=== PATIENT | male | born 1935 | race Caucasian/White ===

== ENCOUNTER 2022-07-14 18:35 | Inpatient (IN) ==
[2022-07-14 19:04] LABS: Basophils % 0.3 % (0.0-0.8); Eosinophils # 0.2 10*3/uL (0.0-0.87); Eosinophils % 1.5 % (0.00-10.9); Hematocrit 36.2 VOL% (42.0-52.0); Hemoglobin 12.3 GM/DL (14.0-18.0); Immature Granulocytes % 0.9 %; Immature Granulocytes Absolute 0.09 #; Lymphocytes # 0.6 10*3/uL (1.4-4.0); Lymphocytes % 5.6 % (21.2-54.2); Mean Corpuscular Volume 97.8 FL (87-102); Monocytes # 1.2 10*3/uL (0.11-0.8); Monocytes % 11.7 % (1.7-12.7); Platelet Count 203 T/CUMM (130-400); Red Cell Distribution Width 12.9 % (9.3-17.3); White Blood Count 10.3 T/CUMM (4-12)
[2022-07-14 19:22] LABS: Albumin 3.2 G/DL (3.4-5.0); Bilirubin,Total 0.5 MG/DL (0.20-1.00); Calcium 8.7 MG/DL (8.5-10.1); Osmolality,Calculated 262.7 MOS/KG (273-304); Potassium 3.9 MMOL/L (3.5-5.1)
[2022-07-14 20:06] LABS: Bacteria,Urine Occasional /HPF (Few); Mucus,Urine Occasional /LPF (Occasional); RBC,Urine 4 /HPF (0-4)
[2022-07-14 20:07] LABS: Urine Color Yellow (Yellow)
[2022-07-14 20:08] LABS: Bilirubin,Urine Negative (Negative); Blood, Urine Negative (Negative); Glucose,Urine (UA) Negative (Negative); Ketones,Urine Negative (Negative); Nitrite,Urine Negative (Negative); Protein,Urine 30 mg/dL (Negative); Urine Appearance Clear (Clear); Urine Specific Gravity 1.025 (1.001-1.035); Urine Urobilinogen 0.2 eU/dL (<2.0)
[2022-07-14] MEDS ORDERED: MAGNESIUM SULF RIDER 2 GM/50 ML PREMIX IV STA (20:15)
[2022-07-14] MEDS ORDERED: DEXTROSE 50% 25 GM/50 ML SYRINGE IV ONE (20:15)
[2022-07-14] MEDS ORDERED: DEXTROSE 10% 250 ML IV ONE (20:15)
[2022-07-14 20:24] LABS: Barbiturates Screen,Urine Negative (Negative); Benzodiazepines Screen,Urine Negative (Negative); Cannabinoid Screen,Urine Negative (Negative); Opiate Screen,Urine Negative (Negative); Phencyclidine Screen,Urine Negative (Negative)
[2022-07-14] MEDS ORDERED: DEXTROSE 50% 25 GM/50 ML VIAL IV STA (20:32)
[2022-07-14] MEDS ORDERED: DEXTROSE 50% 25 GM/50 ML SYRINGE IV STA (20:37)
[2022-07-14 20:59] LABS: ABG Base Excess 1.7 MMOL/L (-2.5-2.5); ABG HCO3 25.9 MMOL/L (20-26); ABG Oxygen Saturation 98.1 % (95-100); ABG PCO2 66.3 MM HG (35-48); ABG PH 7.272 (7.35-7.45); ABG TCO2 27.5 MMOL/L (23-27)
[2022-07-14] MEDS ORDERED: DEXTROSE 10% 1,000 ML IV SCH (21:00)
[2022-07-14] MEDS ORDERED: DEXTROSE 50% 25 GM/50 ML VIAL IV PRN (21:49)
[2022-07-14] MEDS ORDERED: MAGNESIUM SULF RIDER 4 GM/100 ML PREMIX IV PRN (21:49)
[2022-07-14] MEDS ORDERED: GLUCAGON 1 MG VIAL IM PRN ×2 (21:49)
[2022-07-14] MEDS ORDERED: MAGNESIUM SULF RIDER 2 GM/50 ML PREMIX IV PRN (21:49)
[2022-07-14] MEDS: ENOXAPARIN 40 MG/0.4 ML SYRINGE SUBCUT SCH (22:35)
[2022-07-14] MEDS: DEXTROSE 5% NACL 0.9% 1,000 ML IV SCH (23:00)
[2022-07-15] MEDS: DEXTROSE 10% 250 ML BAG IV PRN ×2 (00:16→04:02)
[2022-07-15 05:03] LABS: Arterial Base Excess iSTAT 1 MMOL/L (-2.5-2.5); Arterial Bicarbonate iSTAT 30.4 MMOL/L (20-26); Arterial O2 Saturation iSTAT 98 % (95-100); Arterial PCO2 iSTAT 71 MM HG (35-48); Arterial PO2 iSTAT 134 MM HG (80-95); Arterial Total CO2 iSTAT 33 MMO/L (23-27); Arterial pH iSTAT 7.242 (7.35-7.45)
[2022-07-15 06:26] LABS: Basophils % 0.3 % (0.0-0.8); Eosinophils # 0.3 10*3/uL (0.0-0.87); Eosinophils % 2.4 % (0.00-10.9); Hematocrit 36.1 VOL% (42.0-52.0); Immature Granulocytes % 0.6 %; Immature Granulocytes Absolute 0.06 #; Lymphocytes % 9.4 % (21.2-54.2); Mean Corpuscular HGB Conc 33.2 GM/DL (32-36); Mean Corpuscular Volume 100.3 FL (87-102); Mean Platelet Volume 9.8 FL (9.6-12.0); Monocytes # 1.5 10*3/uL (0.11-0.8); Monocytes % 14.1 % (1.7-12.7); Neutrophils % 73.2 % (38.7-73.9); Platelet Count 195 T/CUMM (130-400); Red Cell Distribution Width 12.7 % (9.3-17.3); White Blood Count 10.3 T/CUMM (4-12)
[2022-07-15 06:33] LABS: Mucus,Urine Many /LPF (Occasional); RBC,Urine 7 /HPF (0-4)
[2022-07-15 06:34] LABS: Bilirubin,Urine Negative (Negative); Blood, Urine Negative (Negative); Glucose,Urine (UA) Negative (Negative); Ketones,Urine Negative (Negative); Nitrite,Urine Negative (Negative); Protein,Urine Negative (Negative); Urine Appearance Clear (Clear); Urine Color Yellow (Yellow); Urine Specific Gravity 1.015 (1.001-1.035); Urine Urobilinogen 0.2 eU/dL (<2.0); Urine pH 5.5 (4.5-8.0)
[2022-07-15] MEDS: DEXTROSE 5% NACL 0.9% 1,000 ML IV SCH ×2 (06:36→14:26)
[2022-07-15 06:55] LABS: Calcium 8.2 MG/DL (8.5-10.1); Osmolality,Calculated 256.9 MOS/KG (273-304); Potassium 4.4 MMOL/L (3.5-5.1); Risk Ratio 1.44; Thyroid Stimulating Hormone 1.37 uIU/ml (0.358-3.74); VLDL Cholesterol 9.8 MG/DL
[2022-07-15] MEDS: HYDROCORTISONE 100 MG VIAL IV SCH ×3 (08:17→23:05)
[2022-07-15] MEDS: BUDESONIDE/FORMOTEROL 160-4.5 INHALER 6 GM INH SCH ×3 (08:18→20:25)
[2022-07-15] MEDS ORDERED: lisinopriL 10 MG TABLET PO SCH (09:00)
[2022-07-15] MEDS: MULTIVITAMIN (CENTRUM) TABLET PO SCH (09:50)
[2022-07-15] MEDS: AMOXICILLIN/CLAV 500 MG TABLET PO SCH ×2 (09:50→20:07)
[2022-07-15] MEDS: TAMSULOSIN 0.4 MG CAPSULE PO SCH (09:50)
[2022-07-15] MEDS: FOLIC ACID 1 MG TABLET PO SCH (09:50)
[2022-07-15] MEDS: ATORVASTATIN 20 MG TABLET PO SCH (09:50)
[2022-07-15] MEDS: PYRIDOSTIGMINE 60 MG TABLET PO SCH ×3 (09:50→20:07)
[2022-07-15] MEDS: CLOPIDOGREL 75 MG TABLET PO SCH (09:50)
[2022-07-15] MEDS: MYCOPHENOLATE MOFETIL 250 MG CAPSULE PO SCH ×2 (09:50→20:07)
[2022-07-15] MEDS: PANTOPRAZOLE 40 MG TABLET PO SCH (09:50)
[2022-07-15] MEDS: FEXOFENADINE 180 MG TABLET PO SCH (09:50)
[2022-07-15] MEDS: ALBUTEROL/IPRATROPIUM 3 ML NEB RESP TX SCH ×2 (12:00→19:01)
[2022-07-15 13:41] LABS: Arterial Base Excess iSTAT 0 MMOL/L (-2.5-2.5); Arterial Bicarbonate iSTAT 27.2 MMOL/L (20-26); Arterial O2 Saturation iSTAT 93 % (95-100); Arterial PCO2 iSTAT 53 MM HG (35-48); Arterial PO2 iSTAT 73 MM HG (80-95); Arterial Total CO2 iSTAT 29 MMO/L (23-27); Arterial pH iSTAT 7.317 (7.35-7.45)
[2022-07-15] MEDS: SODIUM CHLORIDE 0.9% 1,000 ML IV SCH ×2 (15:53→23:05)
[2022-07-15] MEDS: ENOXAPARIN 40 MG/0.4 ML SYRINGE SUBCUT SCH (20:06)
[2022-07-15] MEDS: MONTELUKAST 10 MG TABLET PO SCH (20:07)
[2022-07-16] MEDS: ALBUTEROL/IPRATROPIUM 3 ML NEB RESP TX SCH ×4 (00:04→19:32)
[2022-07-16 04:07] LABS: Arterial Base Excess iSTAT 2 MMOL/L (-2.5-2.5); Arterial Bicarbonate iSTAT 27.8 MMOL/L (20-26); Arterial O2 Saturation iSTAT 95 % (95-100); Arterial PCO2 iSTAT 47 MM HG (35-48); Arterial PO2 iSTAT 78 MM HG (80-95); Arterial Total CO2 iSTAT 29 MMO/L (23-27); Arterial pH iSTAT 7.384 (7.35-7.45)
[2022-07-16 05:36] LABS: Basophils % 0.1 % (0.0-0.8); Hematocrit 36.6 VOL% (42.0-52.0); Immature Granulocytes % 0.7 %; Lymphocytes # 0.5 10*3/uL (1.4-4.0); Lymphocytes % 3.5 % (21.2-54.2); Mean Corpuscular HGB Conc 32.8 GM/DL (32-36); Mean Corpuscular Volume 100.5 FL (87-102); Monocytes # 1.6 10*3/uL (0.11-0.8); Monocytes % 11.8 % (1.7-12.7); Neutrophils % 83.9 % (38.7-73.9); Platelet Count 193 T/CUMM (130-400); Red Blood Count 3.64 MC/CUMM (3.8-5.5); Red Cell Distribution Width 12.7 % (9.3-17.3); White Blood Count 13.5 T/CUMM (4-12)
[2022-07-16 06:00] LABS: Band Neutrophils 1 % (0-10); Lymphocytes 6 % (20-55); Platelet Estimate Adequate; Total Cells Counted 100
[2022-07-16 06:01] LABS: Calcium 8.5 MG/DL (8.5-10.1); Osmolality,Calculated 274.2 MOS/KG (273-304); Potassium 4.6 MMOL/L (3.5-5.1)
[2022-07-16] MEDS: SODIUM CHLORIDE 0.9% 1,000 ML IV SCH ×3 (06:26→22:43)
[2022-07-16] MEDS: HYDROCORTISONE 100 MG VIAL IV SCH (08:48)
[2022-07-16] MEDS: MULTIVITAMIN (CENTRUM) TABLET PO SCH (08:56)
[2022-07-16] MEDS: ATORVASTATIN 20 MG TABLET PO SCH (08:56)
[2022-07-16] MEDS: CLOPIDOGREL 75 MG TABLET PO SCH (08:56)
[2022-07-16] MEDS: PANTOPRAZOLE 40 MG TABLET PO SCH (08:56)
[2022-07-16] MEDS: MYCOPHENOLATE MOFETIL 250 MG CAPSULE PO SCH ×2 (08:56→20:22)
[2022-07-16] MEDS: AMOXICILLIN/CLAV 500 MG TABLET PO SCH ×2 (08:56→20:22)
[2022-07-16] MEDS: FOLIC ACID 1 MG TABLET PO SCH (08:56)
[2022-07-16] MEDS: FEXOFENADINE 180 MG TABLET PO SCH (08:56)
[2022-07-16] MEDS: TAMSULOSIN 0.4 MG CAPSULE PO SCH (08:56)
[2022-07-16] MEDS: lisinopriL 10 MG TABLET PO SCH (08:57)
[2022-07-16] MEDS: PYRIDOSTIGMINE 60 MG TABLET PO SCH ×3 (08:57→20:22)
[2022-07-16] MEDS: BUDESONIDE/FORMOTEROL 160-4.5 INHALER 6 GM INH SCH ×2 (09:01→20:23)
[2022-07-16] MEDS: MONTELUKAST 10 MG TABLET PO SCH (20:22)
[2022-07-16] MEDS: ENOXAPARIN 40 MG/0.4 ML SYRINGE SUBCUT SCH (20:22)
[2022-07-17] MEDS: ALBUTEROL/IPRATROPIUM 3 ML NEB RESP TX SCH ×4 (00:09→18:54)
[2022-07-17 06:25] LABS: Basophils % 0.2 % (0.0-0.8); Eosinophils % 0.1 % (0.00-10.9); Hematocrit 33.1 VOL% (42.0-52.0); Hemoglobin 10.9 GM/DL (14.0-18.0); Immature Granulocytes % 0.6 %; Lymphocytes # 0.5 10*3/uL (1.4-4.0); Lymphocytes % 2.9 % (21.2-54.2); Mean Corpuscular HGB Conc 32.9 GM/DL (32-36); Mean Corpuscular Volume 100.9 FL (87-102); Monocytes # 1.7 10*3/uL (0.11-0.8); Monocytes % 11.3 % (1.7-12.7); Neutrophils % 84.9 % (38.7-73.9); Platelet Count 174 T/CUMM (130-400); Red Blood Count 3.28 MC/CUMM (3.8-5.5); Red Cell Distribution Width 12.8 % (9.3-17.3); White Blood Count 15.4 T/CUMM (4-12)
[2022-07-17 06:42] LABS: Calcium 8.7 MG/DL (8.5-10.1); Osmolality,Calculated 278.7 MOS/KG (273-304); Potassium 4.3 MMOL/L (3.5-5.1)
[2022-07-17 06:50] LABS: Hypochromia Slight; Lymphocytes 3 % (20-55); Platelet Estimate Adequate; Total Cells Counted 100
[2022-07-17] MEDS: lisinopriL 10 MG TABLET PO SCH (08:17)
[2022-07-17] MEDS: PYRIDOSTIGMINE 60 MG TABLET PO SCH ×3 (08:17→20:22)
[2022-07-17] MEDS: MYCOPHENOLATE MOFETIL 250 MG CAPSULE PO SCH ×2 (08:17→20:22)
[2022-07-17] MEDS: PANTOPRAZOLE 40 MG TABLET PO SCH (08:17)
[2022-07-17] MEDS: MULTIVITAMIN (CENTRUM) TABLET PO SCH (08:17)
[2022-07-17] MEDS: FEXOFENADINE 180 MG TABLET PO SCH (08:18)
[2022-07-17] MEDS: TAMSULOSIN 0.4 MG CAPSULE PO SCH (08:18)
[2022-07-17] MEDS: FOLIC ACID 1 MG TABLET PO SCH (08:18)
[2022-07-17] MEDS: AMOXICILLIN/CLAV 500 MG TABLET PO SCH ×2 (08:18→20:22)
[2022-07-17] MEDS: ATORVASTATIN 20 MG TABLET PO SCH (08:18)
[2022-07-17] MEDS: CLOPIDOGREL 75 MG TABLET PO SCH (08:18)
[2022-07-17] MEDS: BUDESONIDE/FORMOTEROL 160-4.5 INHALER 6 GM INH SCH ×2 (08:57→20:22)
[2022-07-17] MEDS ORDERED: METOPROLOL TARTRATE 5 MG/5 ML VIAL IV ONE ×2 (18:39)
[2022-07-17 18:58] LABS: Arterial Base Excess iSTAT 3 MMOL/L (-2.5-2.5); Arterial Bicarbonate iSTAT 28.7 MMOL/L (20-26); Arterial O2 Saturation iSTAT 86 % (95-100); Arterial PCO2 iSTAT 49 MM HG (35-48); Arterial PO2 iSTAT 54 MM HG (80-95); Arterial Total CO2 iSTAT 30 MMO/L (23-27); Arterial pH iSTAT 7.373 (7.35-7.45)
[2022-07-17] MEDS: MONTELUKAST 10 MG TABLET PO SCH (20:22)
[2022-07-17] MEDS: ENOXAPARIN 40 MG/0.4 ML SYRINGE SUBCUT SCH (20:22)
[2022-07-17] MEDS: SODIUM CHLORIDE 0.9% 1,000 ML IV SCH ×2 (22:47→23:59)
[2022-07-17] MEDS: INSULIN LISPRO 100 UNIT/ML SUBCUT SCH (23:38)
[2022-07-18] MEDS: ALBUTEROL/IPRATROPIUM 3 ML NEB RESP TX SCH ×4 (00:04→19:19)
[2022-07-18] MEDS: INSULIN LISPRO 100 UNIT/ML SUBCUT SCH ×4 (05:42→20:51)
[2022-07-18 05:51] LABS: Basophils % 0.2 % (0.0-0.8); Eosinophils % 0.1 % (0.00-10.9); Hematocrit 33.2 VOL% (42.0-52.0); Hemoglobin 10.9 GM/DL (14.0-18.0); Immature Granulocytes Absolute 0.18 #; Lymphocytes # 0.6 10*3/uL (1.4-4.0); Lymphocytes % 3.3 % (21.2-54.2); Mean Corpuscular HGB Conc 32.8 GM/DL (32-36); Mean Corpuscular Volume 100.6 FL (87-102); Mean Platelet Volume 10.1 FL (9.6-12.0); Neutrophils % 84.4 % (38.7-73.9); Platelet Count 176 T/CUMM (130-400); Red Cell Distribution Width 12.8 % (9.3-17.3); White Blood Count 18.2 T/CUMM (4-12)
[2022-07-18 06:19] LABS: Calcium 8.5 MG/DL (8.5-10.1); Osmolality,Calculated 277.5 MOS/KG (273-304); Potassium 4.1 MMOL/L (3.5-5.1)
[2022-07-18 06:29] LABS: Lymphocytes 1 % (20-55); Platelet Estimate Adequate; Total Cells Counted 100
[2022-07-18] MEDS: SODIUM CHLORIDE 0.9% 1,000 ML IV SCH ×2 (06:36→16:58)
[2022-07-18 08:11] LABS: Arterial Base Excess iSTAT 2 MMOL/L (-2.5-2.5); Arterial O2 Saturation iSTAT 94 % (95-100); Arterial PCO2 iSTAT 49 MM HG (35-48); Arterial PO2 iSTAT 73 MM HG (80-95); Arterial Total CO2 iSTAT 29 MMO/L (23-27); Arterial pH iSTAT 7.369 (7.35-7.45)
[2022-07-18] MEDS: MYCOPHENOLATE MOFETIL 250 MG CAPSULE PO SCH ×2 (09:37→20:51)
[2022-07-18] MEDS: ATORVASTATIN 20 MG TABLET PO SCH ×2 (09:37→09:39)
[2022-07-18] MEDS: PYRIDOSTIGMINE 60 MG TABLET PO SCH ×3 (09:37→20:52)
[2022-07-18] MEDS: FEXOFENADINE 180 MG TABLET PO SCH (09:38)
[2022-07-18] MEDS: PANTOPRAZOLE 40 MG TABLET PO SCH (09:38)
[2022-07-18] MEDS: TAMSULOSIN 0.4 MG CAPSULE PO SCH (09:38)
[2022-07-18] MEDS: lisinopriL 10 MG TABLET PO SCH (09:38)
[2022-07-18] MEDS: FOLIC ACID 1 MG TABLET PO SCH (09:38)
[2022-07-18] MEDS: CLOPIDOGREL 75 MG TABLET PO SCH (09:38)
[2022-07-18] MEDS: MULTIVITAMIN (CENTRUM) TABLET PO SCH (09:38)
[2022-07-18] MEDS: predniSONE 20 MG TABLET PO SCH (09:38)
[2022-07-18] MEDS: BUDESONIDE/FORMOTEROL 160-4.5 INHALER 6 GM INH SCH ×2 (09:40→20:53)
[2022-07-18] MEDS: PIPERACILLIN/TAZOBACTAM 3,375 MG in SODIUM CHLORIDE 0.9% 100 ML IV SCH ×2 (09:41→15:58)
[2022-07-18] MEDS: MONTELUKAST 10 MG TABLET PO SCH (20:51)
[2022-07-18] MEDS: ENOXAPARIN 40 MG/0.4 ML SYRINGE SUBCUT SCH (20:51)
[2022-07-19] MEDS: ALBUTEROL/IPRATROPIUM 3 ML NEB RESP TX SCH ×4 (00:31→19:36)
[2022-07-19] MEDS: PIPERACILLIN/TAZOBACTAM 3,375 MG in SODIUM CHLORIDE 0.9% 100 ML IV SCH ×3 (02:20→17:00)
[2022-07-19 05:23] LABS: Basophils % 0.2 % (0.0-0.8); Eosinophils % 0.2 % (0.00-10.9); Hematocrit 30.7 VOL% (42.0-52.0); Immature Granulocytes % 0.9 %; Immature Granulocytes Absolute 0.11 #; Lymphocytes # 0.7 10*3/uL (1.4-4.0); Lymphocytes % 5.4 % (21.2-54.2); Mean Corpuscular HGB Conc 32.6 GM/DL (32-36); Mean Platelet Volume 10.2 FL (9.6-12.0); Monocytes # 1.2 10*3/uL (0.11-0.8); Neutrophils % 83.3 % (38.7-73.9); Platelet Count 174 T/CUMM (130-400); Red Blood Count 3.01 MC/CUMM (3.8-5.5); White Blood Count 12.2 T/CUMM (4-12)
[2022-07-19 05:52] LABS: Calcium 8.8 MG/DL (8.5-10.1); Osmolality,Calculated 287.1 MOS/KG (273-304)
[2022-07-19] MEDS: SODIUM CHLORIDE 0.9% 1,000 ML IV SCH ×2 (08:39→10:57)
[2022-07-19] MEDS: FEXOFENADINE 180 MG TABLET PO SCH (08:41)
[2022-07-19] MEDS: predniSONE 20 MG TABLET PO SCH (08:41)
[2022-07-19] MEDS: MULTIVITAMIN (CENTRUM) TABLET PO SCH (08:41)
[2022-07-19] MEDS: PANTOPRAZOLE 40 MG TABLET PO SCH (08:41)
[2022-07-19] MEDS: PYRIDOSTIGMINE 60 MG TABLET PO SCH ×3 (08:41→21:03)
[2022-07-19] MEDS: TAMSULOSIN 0.4 MG CAPSULE PO SCH (08:41)
[2022-07-19] MEDS: MYCOPHENOLATE MOFETIL 250 MG CAPSULE PO SCH ×2 (08:41→21:02)
[2022-07-19] MEDS: INSULIN LISPRO 100 UNIT/ML SUBCUT SCH ×4 (08:41→21:03)
[2022-07-19] MEDS: lisinopriL 10 MG TABLET PO SCH (08:41)
[2022-07-19] MEDS: CLOPIDOGREL 75 MG TABLET PO SCH (08:41)
[2022-07-19] MEDS: FOLIC ACID 1 MG TABLET PO SCH (08:41)
[2022-07-19] MEDS: ATORVASTATIN 20 MG TABLET PO SCH (08:41)
[2022-07-19] MEDS: BUDESONIDE/FORMOTEROL 160-4.5 INHALER 6 GM INH SCH ×2 (08:47→21:04)
[2022-07-19] MEDS: metFORMIN 500 MG TABLET PO SCH (16:29)
[2022-07-19] MEDS: ENOXAPARIN 40 MG/0.4 ML SYRINGE SUBCUT SCH (21:02)
[2022-07-19] MEDS: MONTELUKAST 10 MG TABLET PO SCH (21:03)
[2022-07-19] MEDS: ACETAMINOPHEN 325 MG TABLET PO PRN (21:03)
[2022-07-20] MEDS: ALBUTEROL/IPRATROPIUM 3 ML NEB RESP TX SCH ×4 (00:44→19:35)
[2022-07-20] MEDS: PIPERACILLIN/TAZOBACTAM 3,375 MG in SODIUM CHLORIDE 0.9% 100 ML IV SCH ×3 (02:14→17:01)
[2022-07-20] MEDS: INSULIN LISPRO 100 UNIT/ML SUBCUT SCH ×4 (09:31→21:55)
[2022-07-20] MEDS: PYRIDOSTIGMINE 60 MG TABLET PO SCH ×3 (09:32→21:53)
[2022-07-20] MEDS: FEXOFENADINE 180 MG TABLET PO SCH (09:32)
[2022-07-20] MEDS: CLOPIDOGREL 75 MG TABLET PO SCH (09:32)
[2022-07-20] MEDS: ATORVASTATIN 20 MG TABLET PO SCH (09:32)
[2022-07-20] MEDS: predniSONE 20 MG TABLET PO SCH (09:32)
[2022-07-20] MEDS: lisinopriL 10 MG TABLET PO SCH (09:32)
[2022-07-20] MEDS: FOLIC ACID 1 MG TABLET PO SCH (09:32)
[2022-07-20] MEDS: BUDESONIDE/FORMOTEROL 160-4.5 INHALER 6 GM INH SCH ×2 (09:33→21:54)
[2022-07-20] MEDS: TAMSULOSIN 0.4 MG CAPSULE PO SCH (09:33)
[2022-07-20] MEDS: metFORMIN 500 MG TABLET PO SCH ×2 (09:33→17:01)
[2022-07-20] MEDS: MYCOPHENOLATE MOFETIL 250 MG CAPSULE PO SCH ×2 (09:33→21:53)
[2022-07-20] MEDS: PANTOPRAZOLE 40 MG TABLET PO SCH (09:33)
[2022-07-20] MEDS: MULTIVITAMIN (CENTRUM) TABLET PO SCH (09:33)
[2022-07-20] MEDS: ENOXAPARIN 40 MG/0.4 ML SYRINGE SUBCUT SCH (21:53)
[2022-07-20] MEDS: MONTELUKAST 10 MG TABLET PO SCH (21:53)
[2022-07-21] MEDS: PIPERACILLIN/TAZOBACTAM 3,375 MG in SODIUM CHLORIDE 0.9% 100 ML IV SCH ×3 (01:07→16:59)
[2022-07-21] MEDS: ALBUTEROL/IPRATROPIUM 3 ML NEB RESP TX SCH ×5 (01:09→19:22)
[2022-07-21 06:28] LABS: Basophils % 0.2 % (0.0-0.8); Eosinophils # 0.1 10*3/uL (0.0-0.87); Eosinophils % 0.5 % (0.00-10.9); Hematocrit 30.6 VOL% (42.0-52.0); Hemoglobin 9.9 GM/DL (14.0-18.0); Immature Granulocytes % 1.4 %; Immature Granulocytes Absolute 0.13 #; Lymphocytes # 1.2 10*3/uL (1.4-4.0); Lymphocytes % 12.9 % (21.2-54.2); Mean Corpuscular HGB Conc 32.4 GM/DL (32-36); Mean Platelet Volume 10.1 FL (9.6-12.0); Monocytes # 1.1 10*3/uL (0.11-0.8); Monocytes % 11.5 % (1.7-12.7); Neutrophils % 73.5 % (38.7-73.9); Platelet Count 225 T/CUMM (130-400); Red Cell Distribution Width 12.9 % (9.3-17.3); White Blood Count 9.2 T/CUMM (4-12)
[2022-07-21 07:01] LABS: Calcium 8.9 MG/DL (8.5-10.1); Osmolality,Calculated 286.1 MOS/KG (273-304); Potassium 3.8 MMOL/L (3.5-5.1)
[2022-07-21] MEDS: INSULIN LISPRO 100 UNIT/ML SUBCUT SCH ×4 (08:03→20:51)
[2022-07-21] MEDS: MYCOPHENOLATE MOFETIL 250 MG CAPSULE PO SCH ×2 (09:08→20:51)
[2022-07-21] MEDS: MULTIVITAMIN (CENTRUM) TABLET PO SCH (09:08)
[2022-07-21] MEDS: predniSONE 20 MG TABLET PO SCH (09:08)
[2022-07-21] MEDS: CLOPIDOGREL 75 MG TABLET PO SCH (09:08)
[2022-07-21] MEDS: FOLIC ACID 1 MG TABLET PO SCH (09:08)
[2022-07-21] MEDS: PYRIDOSTIGMINE 60 MG TABLET PO SCH ×3 (09:08→20:51)
[2022-07-21] MEDS: metFORMIN 500 MG TABLET PO SCH ×2 (09:08→16:59)
[2022-07-21] MEDS: FEXOFENADINE 180 MG TABLET PO SCH (09:08)
[2022-07-21] MEDS: PANTOPRAZOLE 40 MG TABLET PO SCH (09:08)
[2022-07-21] MEDS: ATORVASTATIN 20 MG TABLET PO SCH (09:09)
[2022-07-21] MEDS: lisinopriL 10 MG TABLET PO SCH (09:09)
[2022-07-21] MEDS: BUDESONIDE/FORMOTEROL 160-4.5 INHALER 6 GM INH SCH ×2 (09:09→20:52)
[2022-07-21] MEDS: TAMSULOSIN 0.4 MG CAPSULE PO SCH (09:09)
[2022-07-21] MEDS: ENOXAPARIN 40 MG/0.4 ML SYRINGE SUBCUT SCH (20:50)
[2022-07-21] MEDS: MONTELUKAST 10 MG TABLET PO SCH (20:56)
[2022-07-22] MEDS: PIPERACILLIN/TAZOBACTAM 3,375 MG in SODIUM CHLORIDE 0.9% 100 ML IV SCH ×3 (00:44→17:18)
[2022-07-22 05:42] LABS: Basophils % 0.4 % (0.0-0.8); Eosinophils # 0.1 10*3/uL (0.0-0.87); Eosinophils % 0.8 % (0.00-10.9); Hematocrit 30.5 VOL% (42.0-52.0); Hemoglobin 9.8 GM/DL (14.0-18.0); Immature Granulocytes % 2.7 %; Immature Granulocytes Absolute 0.26 #; Lymphocytes # 1.1 10*3/uL (1.4-4.0); Lymphocytes % 11.8 % (21.2-54.2); Mean Corpuscular HGB Conc 32.1 GM/DL (32-36); Mean Corpuscular Volume 102.3 FL (87-102); Mean Platelet Volume 9.9 FL (9.6-12.0); Monocytes # 1.2 10*3/uL (0.11-0.8); Monocytes % 12.8 % (1.7-12.7); Neutrophils % 71.5 % (38.7-73.9); Platelet Count 248 T/CUMM (130-400); Red Blood Count 2.98 MC/CUMM (3.8-5.5); White Blood Count 9.7 T/CUMM (4-12)
[2022-07-22 06:12] LABS: Calcium 9.1 MG/DL (8.5-10.1); Osmolality,Calculated 281.3 MOS/KG (273-304)
[2022-07-22] MEDS: ALBUTEROL/IPRATROPIUM 3 ML NEB RESP TX SCH ×3 (07:02→19:23)
[2022-07-22] MEDS: INSULIN LISPRO 100 UNIT/ML SUBCUT SCH ×5 (08:15→20:20)
[2022-07-22] MEDS: CLOPIDOGREL 75 MG TABLET PO SCH (10:20)
[2022-07-22] MEDS: lisinopriL 10 MG TABLET PO SCH (10:20)
[2022-07-22] MEDS: PANTOPRAZOLE 40 MG TABLET PO SCH (10:20)
[2022-07-22] MEDS: FEXOFENADINE 180 MG TABLET PO SCH (10:20)
[2022-07-22] MEDS: MULTIVITAMIN (CENTRUM) TABLET PO SCH (10:20)
[2022-07-22] MEDS: FOLIC ACID 1 MG TABLET PO SCH (10:20)
[2022-07-22] MEDS: metFORMIN 500 MG TABLET PO SCH ×2 (10:20→17:18)
[2022-07-22] MEDS: PYRIDOSTIGMINE 60 MG TABLET PO SCH ×3 (10:20→20:20)
[2022-07-22] MEDS: predniSONE 10 MG TABLET PO SCH (10:20)
[2022-07-22] MEDS: MYCOPHENOLATE MOFETIL 250 MG CAPSULE PO SCH ×2 (10:20→20:20)
[2022-07-22] MEDS: TAMSULOSIN 0.4 MG CAPSULE PO SCH (10:20)
[2022-07-22] MEDS: ATORVASTATIN 20 MG TABLET PO SCH (10:20)
[2022-07-22] MEDS: BUDESONIDE/FORMOTEROL 160-4.5 INHALER 6 GM INH SCH ×2 (10:21→20:21)
[2022-07-22 15:07] LABS: Arterial Base Excess iSTAT 6 MMOL/L (-2.5-2.5); Arterial Bicarbonate iSTAT 30.3 MMOL/L (20-26); Arterial O2 Saturation iSTAT 91 % (95-100); Arterial PCO2 iSTAT 43 MM HG (35-48); Arterial PO2 iSTAT 59 MM HG (80-95); Arterial Total CO2 iSTAT 32 MMO/L (23-27); Arterial pH iSTAT 7.456 (7.35-7.45)
[2022-07-22] MEDS: MONTELUKAST 10 MG TABLET PO SCH (20:20)
[2022-07-22] MEDS: ENOXAPARIN 40 MG/0.4 ML SYRINGE SUBCUT SCH (20:37)
[2022-07-23] MEDS: PIPERACILLIN/TAZOBACTAM 3,375 MG in SODIUM CHLORIDE 0.9% 100 ML IV SCH ×2 (00:43→10:11)
[2022-07-23] MEDS: ALBUTEROL/IPRATROPIUM 3 ML NEB RESP TX SCH ×3 (01:19→13:19)
[2022-07-23 05:14] LABS: Basophils # 0.1 10*3/uL (0.0-0.2); Basophils % 0.5 % (0.0-0.8); Eosinophils # 0.1 10*3/uL (0.0-0.87); Eosinophils % 0.9 % (0.00-10.9); Hematocrit 32.9 VOL% (42.0-52.0); Hemoglobin 10.7 GM/DL (14.0-18.0); Immature Granulocytes % 4.4 %; Immature Granulocytes Absolute 0.57 #; Lymphocytes # 1.3 10*3/uL (1.4-4.0); Lymphocytes % 10.2 % (21.2-54.2); Mean Corpuscular HGB Conc 32.5 GM/DL (32-36); Mean Corpuscular Volume 101.5 FL (87-102); Mean Platelet Volume 9.8 FL (9.6-12.0); Monocytes # 1.4 10*3/uL (0.11-0.8); Monocytes % 10.6 % (1.7-12.7); Neutrophils % 73.4 % (38.7-73.9); Platelet Count 271 T/CUMM (130-400); Red Blood Count 3.24 MC/CUMM (3.8-5.5); Red Cell Distribution Width 12.6 % (9.3-17.3); White Blood Count 12.9 T/CUMM (4-12)
[2022-07-23 05:35] LABS: Calcium 9.2 MG/DL (8.5-10.1); Osmolality,Calculated 277.7 MOS/KG (273-304); Potassium 3.8 MMOL/L (3.5-5.1)
[2022-07-23 05:38] LABS: Eosinophils 2 % (0-10); Lymphocytes 8 % (20-55); Platelet Estimate Adequate; Total Cells Counted 100
[2022-07-23] MEDS: INSULIN LISPRO 100 UNIT/ML SUBCUT SCH ×2 (08:31→12:17)
[2022-07-23] MEDS: PYRIDOSTIGMINE 60 MG TABLET PO SCH ×2 (10:14→16:33)
[2022-07-23] MEDS: FEXOFENADINE 180 MG TABLET PO SCH (10:14)
[2022-07-23] MEDS: MYCOPHENOLATE MOFETIL 250 MG CAPSULE PO SCH (10:14)
[2022-07-23] MEDS: MULTIVITAMIN (CENTRUM) TABLET PO SCH (10:14)
[2022-07-23] MEDS: ATORVASTATIN 20 MG TABLET PO SCH (10:14)
[2022-07-23] MEDS: PANTOPRAZOLE 40 MG TABLET PO SCH (10:14)
[2022-07-23] MEDS: CLOPIDOGREL 75 MG TABLET PO SCH (10:14)
[2022-07-23] MEDS: FOLIC ACID 1 MG TABLET PO SCH (10:15)
[2022-07-23] MEDS: predniSONE 10 MG TABLET PO SCH (10:15)
[2022-07-23] MEDS: metFORMIN 500 MG TABLET PO SCH (10:15)
[2022-07-23] MEDS: TAMSULOSIN 0.4 MG CAPSULE PO SCH (10:15)
[2022-07-23] MEDS: ACETAMINOPHEN 325 MG TABLET PO PRN (10:15)
[2022-07-23] MEDS: lisinopriL 10 MG TABLET PO SCH (10:15)
[2022-07-23] MEDS: BUDESONIDE/FORMOTEROL 160-4.5 INHALER 6 GM INH SCH (10:29)
[2022-07-23 15:46] VITALS: BP 155/69
[2022-07-23] MEDS ORDERED: AMOXICILLIN/CLAV 875 MG TABLET PO SCH (21:00)
== END 2022-07-23 16:35 | DRG 637 ==
LOC: EDBD → EDUNIT# → N.ED 18:35 → SUATTDRO 21:49 → N.ICU 21:49 → N.5E 07-18 19:41
PROVIDERS: ADMIT Internal Medicine; ATTEND Internal Medicine

== ENCOUNTER 2022-10-30 12:02 | Inpatient (IN) ==
[2022-10-30] MEDS ORDERED: FUROSEMIDE 40 MG/4 ML VIAL IV STA (12:42)
[2022-10-30] MEDS ORDERED: ALBUTEROL/IPRATROPIUM 3 ML NEB RESP TX STA (12:42)
[2022-10-30 13:09] LABS: Basophils # 0.1 10*3/uL (0.0-0.2); Basophils % 0.3 % (0.0-0.8); Eosinophils % 0.1 % (0.00-10.9); Hematocrit 40.6 VOL% (42.0-52.0); Hemoglobin 13.1 GM/DL (14.0-18.0); Immature Granulocytes % 4.8 %; Immature Granulocytes Absolute 1.17 #; Lymphocytes # 0.8 10*3/uL (1.4-4.0); Lymphocytes % 3.2 % (21.2-54.2); Mean Corpuscular HGB Conc 32.3 GM/DL (32-36); Mean Corpuscular Volume 95.8 FL (87-102); Monocytes # 0.9 10*3/uL (0.11-0.8); Monocytes % 3.8 % (1.7-12.7); Neutrophils % 87.8 % (38.7-73.9); Platelet Count 363 T/CUMM (130-400); Red Blood Count 4.24 MC/CUMM (3.8-5.5); Red Cell Distribution Width 13.2 % (9.3-17.3); White Blood Count 24.6 T/CUMM (4-12)
[2022-10-30 13:27] LABS: Albumin 3.3 G/DL (3.4-5.0); Bilirubin,Total 0.4 MG/DL (0.20-1.00); Calcium 9.3 MG/DL (8.5-10.1); Osmolality,Calculated 279.4 MOS/KG (273-304); Potassium 4.7 MMOL/L (3.5-5.1); Total Protein 6.6 G/DL (6.4-8.2)
[2022-10-30 13:40] LABS: Band Neutrophils 1 % (0-10); Lymphocytes 6 % (20-55); Total Cells Counted 100
[2022-10-30 13:41] LABS: Platelet Estimate Adequate
[2022-10-30] MEDS ORDERED: cefTRIAXone 1,000 MG in SODIUM CHLORIDE 0.9% 100 ML IV STA (14:20)
[2022-10-30] MEDS ORDERED: AZITHROMYCIN 250 MG TABLET PO STA (14:20)
[2022-10-30] MEDS ORDERED: ONDANSETRON 4 MG/2 ML VIAL IV PRN (14:47)
[2022-10-30] MEDS ORDERED: DEXTROSE 10% 250 ML BAG IV PRN (14:47)
[2022-10-30] MEDS ORDERED: ACETAMINOPHEN 325 MG TABLET PO PRN (14:47)
[2022-10-30] MEDS ORDERED: GLUCAGON 1 MG VIAL IM PRN (14:47)
[2022-10-30] MEDS ORDERED: POLYETHYLENE GLYCOL POWDER 17 GM PACK PO PRN (15:15)
[2022-10-30] MEDS ORDERED: hydrALAZINE 20 MG/1 ML VIAL IV PRN (15:19)
[2022-10-30] MEDS: methylPREDNISolone SOD SUC 40 MG/1 ML VIAL IV SCH (15:50)
[2022-10-30] MEDS: ENOXAPARIN 40 MG/0.4 ML SYRINGE SUBCUT SCH (15:52)
[2022-10-30] MEDS ORDERED: TISSUE ADHESIVE 1 EACH APPLICATOR TOP ONE ×2 (16:32→16:35)
[2022-10-30] MEDS: INSULIN LISPRO 100 UNIT/ML SUBCUT SCH ×2 (16:45→22:30)
[2022-10-30] MEDS: ALBUTEROL/IPRATROPIUM 3 ML NEB RESP TX SCH (19:37)
[2022-10-30] MEDS: BUDESONIDE 0.5 MG/2 ML NEB RESP TX SCH (19:37)
[2022-10-30] MEDS: PYRIDOSTIGMINE 60 MG TABLET PO SCH (22:29)
[2022-10-30] MEDS: MYCOPHENOLATE MOFETIL 250 MG CAPSULE PO SCH (22:29)
[2022-10-30] MEDS: lisinopriL 10 MG TABLET PO SCH (22:29)
[2022-10-30] MEDS: MULTIVITAMIN (OCUVITE) TABLET PO SCH (22:29)
[2022-10-30] MEDS: INSULIN GLARGINE 100 UNIT/ML SUBCUT SCH (22:30)
[2022-10-31] MEDS: ALBUTEROL/IPRATROPIUM 3 ML NEB RESP TX SCH ×4 (01:21→19:40)
[2022-10-31] MEDS: methylPREDNISolone SOD SUC 40 MG/1 ML VIAL IV SCH ×2 (04:10→15:22)
[2022-10-31 06:03] LABS: Basophils # 0.1 10*3/uL (0.0-0.2); Basophils % 0.4 % (0.0-0.8); Eosinophils # 0.1 10*3/uL (0.0-0.87); Eosinophils % 0.3 % (0.00-10.9); Hematocrit 37.5 VOL% (42.0-52.0); Hemoglobin 11.9 GM/DL (14.0-18.0); Immature Granulocytes % 5.2 %; Immature Granulocytes Absolute 1.04 #; Lymphocytes # 1.2 10*3/uL (1.4-4.0); Lymphocytes % 5.8 % (21.2-54.2); Mean Corpuscular HGB Conc 31.7 GM/DL (32-36); Mean Corpuscular Volume 99.2 FL (87-102); Mean Platelet Volume 9.4 FL (9.6-12.0); Monocytes # 1.3 10*3/uL (0.11-0.8); Monocytes % 6.2 % (1.7-12.7); Neutrophils % 82.1 % (38.7-73.9); Platelet Count 349 T/CUMM (130-400); Red Blood Count 3.78 MC/CUMM (3.8-5.5); Red Cell Distribution Width 13.3 % (9.3-17.3)
[2022-10-31 06:29] LABS: Hypochromia Slight; Lymphocytes 3 % (20-55); Microcytosis Slight; Platelet Estimate Adequate; Total Cells Counted 100
[2022-10-31 06:30] LABS: Alanine Aminotransferase 25 U/L (16-61); Albumin 2.9 G/DL (3.4-5.0); Alkaline Phosphatase 84 U/L (45-117); Aspartate Amino Transferase 9 U/L (0-37); Bilirubin,Total < 0.39 MG/DL (0.20-1.00); Blood Urea Nitrogen 25 MG/DL (7-18); Calcium 9.2 MG/DL (8.5-10.1); Carbon Dioxide 38 MMOL/L (21-32); Chloride 96 MMOL/L (98-107); Cholesterol 119 MG/DL (50-200); Glucose 97 MG/DL (74-106); HDL Cholesterol 75 MG/DL (40-60); Osmolality,Calculated 273.1 MOS/KG (273-304); Potassium 4.4 MMOL/L (3.5-5.1); Risk Ratio 1.59; Sodium 135 MMOL/L (136-145); Total Protein 6.2 G/DL (6.4-8.2); Triglycerides 52 MG/DL (2-150); VLDL Cholesterol 10.4 MG/DL
[2022-10-31] MEDS: BUDESONIDE 0.5 MG/2 ML NEB RESP TX SCH ×2 (07:25→19:40)
[2022-10-31] MEDS: INSULIN LISPRO 100 UNIT/ML SUBCUT SCH ×4 (07:48→21:56)
[2022-10-31] MEDS: lisinopriL 10 MG TABLET PO SCH ×2 (09:38→21:53)
[2022-10-31] MEDS: MYCOPHENOLATE MOFETIL 250 MG CAPSULE PO SCH ×2 (09:39→21:53)
[2022-10-31] MEDS: FOLIC ACID 1 MG TABLET PO SCH (09:39)
[2022-10-31] MEDS: CLOPIDOGREL 75 MG TABLET PO SCH (09:39)
[2022-10-31] MEDS: FEXOFENADINE 180 MG TABLET PO SCH (09:39)
[2022-10-31] MEDS: MULTIVITAMIN (CENTRUM) TABLET PO SCH (09:39)
[2022-10-31] MEDS: MONTELUKAST 10 MG TABLET PO SCH (09:39)
[2022-10-31] MEDS: ATORVASTATIN 20 MG TABLET PO SCH (09:39)
[2022-10-31] MEDS: TAMSULOSIN 0.4 MG CAPSULE PO SCH (09:39)
[2022-10-31] MEDS: MULTIVITAMIN (OCUVITE) TABLET PO SCH ×2 (09:39→21:52)
[2022-10-31] MEDS: PANTOPRAZOLE 40 MG TABLET PO SCH (09:40)
[2022-10-31] MEDS: PYRIDOSTIGMINE 60 MG TABLET PO SCH ×3 (09:40→21:53)
[2022-10-31] MEDS: ENOXAPARIN 40 MG/0.4 ML SYRINGE SUBCUT SCH (15:22)
[2022-10-31] MEDS: AZITHROMYCIN INJ 500 MG in SODIUM CHLORIDE 0.9% 250 ML IV SCH (15:24)
[2022-10-31] MEDS: cefTRIAXone 1,000 MG in SODIUM CHLORIDE 0.9% 100 ML IV SCH (16:55)
[2022-10-31] MEDS: INSULIN GLARGINE 100 UNIT/ML SUBCUT SCH (21:58)
[2022-11-01] MEDS: ALBUTEROL/IPRATROPIUM 3 ML NEB RESP TX SCH ×4 (00:07→19:24)
[2022-11-01] MEDS: methylPREDNISolone SOD SUC 40 MG/1 ML VIAL IV SCH ×2 (04:01→14:34)
[2022-11-01 06:00] LABS: Basophils # 0.1 10*3/uL (0.0-0.2); Basophils % 0.3 % (0.0-0.8); Hematocrit 37.4 VOL% (42.0-52.0); Hemoglobin 11.8 GM/DL (14.0-18.0); Immature Granulocytes % 4.1 %; Immature Granulocytes Absolute 1.03 #; Lymphocytes # 0.6 10*3/uL (1.4-4.0); Lymphocytes % 2.3 % (21.2-54.2); Mean Corpuscular HGB Conc 31.6 GM/DL (32-36); Mean Corpuscular Volume 98.9 FL (87-102); Mean Platelet Volume 9.4 FL (9.6-12.0); Monocytes # 1.7 10*3/uL (0.11-0.8); Monocytes % 6.6 % (1.7-12.7); Neutrophils % 86.7 % (38.7-73.9); Platelet Count 334 T/CUMM (130-400); Red Blood Count 3.78 MC/CUMM (3.8-5.5); Red Cell Distribution Width 13.7 % (9.3-17.3); White Blood Count 25.3 T/CUMM (4-12)
[2022-11-01 06:19] LABS: Lymphocytes 3 % (20-55); Platelet Estimate Adequate; Total Cells Counted 100
[2022-11-01 06:30] LABS: Calcium 8.8 MG/DL (8.5-10.1); Osmolality,Calculated 284.7 MOS/KG (273-304); Potassium 4.3 MMOL/L (3.5-5.1)
[2022-11-01] MEDS: BUDESONIDE 0.5 MG/2 ML NEB RESP TX SCH ×2 (06:54→19:18)
[2022-11-01] MEDS: INSULIN LISPRO 100 UNIT/ML SUBCUT SCH ×4 (09:06→21:38)
[2022-11-01] MEDS: MYCOPHENOLATE MOFETIL 250 MG CAPSULE PO SCH ×2 (09:09→21:21)
[2022-11-01] MEDS: MONTELUKAST 10 MG TABLET PO SCH (09:09)
[2022-11-01] MEDS: TAMSULOSIN 0.4 MG CAPSULE PO SCH (09:09)
[2022-11-01] MEDS: PYRIDOSTIGMINE 60 MG TABLET PO SCH ×3 (09:09→21:22)
[2022-11-01] MEDS: ATORVASTATIN 20 MG TABLET PO SCH (09:09)
[2022-11-01] MEDS: MULTIVITAMIN (CENTRUM) TABLET PO SCH (09:09)
[2022-11-01] MEDS: MULTIVITAMIN (OCUVITE) TABLET PO SCH ×2 (09:10→21:22)
[2022-11-01] MEDS: PANTOPRAZOLE 40 MG TABLET PO SCH (09:10)
[2022-11-01] MEDS: FOLIC ACID 1 MG TABLET PO SCH (09:10)
[2022-11-01] MEDS: CLOPIDOGREL 75 MG TABLET PO SCH (09:10)
[2022-11-01] MEDS: FEXOFENADINE 180 MG TABLET PO SCH (09:10)
[2022-11-01] MEDS: lisinopriL 10 MG TABLET PO SCH ×2 (09:13→21:22)
[2022-11-01] MEDS: ENOXAPARIN 40 MG/0.4 ML SYRINGE SUBCUT SCH (14:21)
[2022-11-01] MEDS: AZITHROMYCIN INJ 500 MG in SODIUM CHLORIDE 0.9% 250 ML IV SCH (14:35)
[2022-11-01] MEDS: cefTRIAXone 1,000 MG in SODIUM CHLORIDE 0.9% 100 ML IV SCH (17:18)
[2022-11-01] MEDS: INSULIN GLARGINE 100 UNIT/ML SUBCUT SCH (21:22)
[2022-11-02] MEDS: ALBUTEROL/IPRATROPIUM 3 ML NEB RESP TX SCH ×5 (00:50→23:57)
[2022-11-02] MEDS: methylPREDNISolone SOD SUC 40 MG/1 ML VIAL IV SCH ×2 (02:56→16:56)
[2022-11-02] MEDS: BUDESONIDE 0.5 MG/2 ML NEB RESP TX SCH ×2 (06:50→19:31)
[2022-11-02 06:57] LABS: Basophils # 0.1 10*3/uL (0.0-0.2); Basophils % 0.2 % (0.0-0.8); Hematocrit 38.8 VOL% (42.0-52.0); Hemoglobin 11.9 GM/DL (14.0-18.0); Immature Granulocytes % 1.9 %; Immature Granulocytes Absolute 0.49 #; Lymphocytes # 0.5 10*3/uL (1.4-4.0); Lymphocytes % 1.8 % (21.2-54.2); Mean Corpuscular HGB Conc 30.7 GM/DL (32-36); Mean Platelet Volume 9.4 FL (9.6-12.0); Monocytes # 1.5 10*3/uL (0.11-0.8); Monocytes % 5.7 % (1.7-12.7); Neutrophils % 90.4 % (38.7-73.9); Platelet Count 362 T/CUMM (130-400); Red Blood Count 3.88 MC/CUMM (3.8-5.5); Red Cell Distribution Width 13.7 % (9.3-17.3); White Blood Count 25.8 T/CUMM (4-12)
[2022-11-02 07:19] LABS: Lymphocytes 8 % (20-55); Platelet Estimate Normal; Total Cells Counted 100
[2022-11-02 07:20] LABS: Anisocytosis 1+; Burr Cells Few; Macrocytosis Slight
[2022-11-02] MEDS: INSULIN LISPRO 100 UNIT/ML SUBCUT SCH ×4 (08:48→21:00)
[2022-11-02] MEDS: MULTIVITAMIN (CENTRUM) TABLET PO SCH (08:49)
[2022-11-02] MEDS: PANTOPRAZOLE 40 MG TABLET PO SCH (08:49)
[2022-11-02] MEDS: CLOPIDOGREL 75 MG TABLET PO SCH (08:49)
[2022-11-02] MEDS: FEXOFENADINE 180 MG TABLET PO SCH (08:49)
[2022-11-02] MEDS: TAMSULOSIN 0.4 MG CAPSULE PO SCH (08:49)
[2022-11-02] MEDS: MONTELUKAST 10 MG TABLET PO SCH (08:49)
[2022-11-02] MEDS: FOLIC ACID 1 MG TABLET PO SCH (08:49)
[2022-11-02] MEDS: MULTIVITAMIN (OCUVITE) TABLET PO SCH ×2 (08:49→21:44)
[2022-11-02] MEDS: ATORVASTATIN 20 MG TABLET PO SCH (08:49)
[2022-11-02] MEDS: MYCOPHENOLATE MOFETIL 250 MG CAPSULE PO SCH ×2 (08:49→21:20)
[2022-11-02] MEDS: lisinopriL 10 MG TABLET PO SCH (08:50)
[2022-11-02] MEDS: PYRIDOSTIGMINE 60 MG TABLET PO SCH ×3 (08:50→21:43)
[2022-11-02] MEDS: AZITHROMYCIN INJ 500 MG in SODIUM CHLORIDE 0.9% 250 ML IV SCH (15:57)
[2022-11-02] MEDS: cefTRIAXone 1,000 MG in SODIUM CHLORIDE 0.9% 100 ML IV SCH (17:23)
[2022-11-02] MEDS: ENOXAPARIN 40 MG/0.4 ML SYRINGE SUBCUT SCH (21:43)
[2022-11-02] MEDS: INSULIN GLARGINE 100 UNIT/ML SUBCUT SCH (21:43)
[2022-11-03] MEDS: methylPREDNISolone SOD SUC 40 MG/1 ML VIAL IV SCH ×2 (02:58→16:35)
[2022-11-03 06:46] LABS: Basophils % 0.2 % (0.0-0.8); Hemoglobin 10.8 GM/DL (14.0-18.0); Immature Granulocytes % 1.7 %; Immature Granulocytes Absolute 0.32 #; Lymphocytes # 0.4 10*3/uL (1.4-4.0); Mean Corpuscular HGB Conc 30.9 GM/DL (32-36); Mean Corpuscular Volume 101.7 FL (87-102); Mean Platelet Volume 9.8 FL (9.6-12.0); Monocytes # 1.1 10*3/uL (0.11-0.8); Monocytes % 5.9 % (1.7-12.7); Neutrophils % 90.2 % (38.7-73.9); Platelet Count 306 T/CUMM (130-400); Red Blood Count 3.44 MC/CUMM (3.8-5.5); Red Cell Distribution Width 13.7 % (9.3-17.3); White Blood Count 18.8 T/CUMM (4-12)
[2022-11-03 07:05] LABS: Calcium 8.7 MG/DL (8.5-10.1); Osmolality,Calculated 292.7 MOS/KG (273-304); Potassium 4.4 MMOL/L (3.5-5.1)
[2022-11-03 07:08] LABS: Lymphocytes 1 % (20-55); Platelet Estimate Adequate; Total Cells Counted 100
[2022-11-03] MEDS: BUDESONIDE 0.5 MG/2 ML NEB RESP TX SCH ×2 (07:40→19:05)
[2022-11-03] MEDS: ALBUTEROL/IPRATROPIUM 3 ML NEB RESP TX SCH ×3 (07:40→19:05)
[2022-11-03] MEDS: MULTIVITAMIN (OCUVITE) TABLET PO SCH ×2 (10:02→21:36)
[2022-11-03] MEDS: FOLIC ACID 1 MG TABLET PO SCH (10:02)
[2022-11-03] MEDS: PANTOPRAZOLE 40 MG TABLET PO SCH (10:02)
[2022-11-03] MEDS: MYCOPHENOLATE MOFETIL 250 MG CAPSULE PO SCH ×2 (10:02→21:30)
[2022-11-03] MEDS: CLOPIDOGREL 75 MG TABLET PO SCH (10:02)
[2022-11-03] MEDS: FEXOFENADINE 180 MG TABLET PO SCH (10:02)
[2022-11-03] MEDS: MULTIVITAMIN (CENTRUM) TABLET PO SCH (10:02)
[2022-11-03] MEDS: MONTELUKAST 10 MG TABLET PO SCH (10:03)
[2022-11-03] MEDS: TAMSULOSIN 0.4 MG CAPSULE PO SCH (10:03)
[2022-11-03] MEDS: ATORVASTATIN 20 MG TABLET PO SCH (10:03)
[2022-11-03] MEDS: PYRIDOSTIGMINE 60 MG TABLET PO SCH ×3 (10:03→21:36)
[2022-11-03] MEDS: lisinopriL 10 MG TABLET PO SCH (10:03)
[2022-11-03] MEDS ORDERED: FUROSEMIDE 40 MG/4 ML VIAL IV ONE (10:06)
[2022-11-03] MEDS: INSULIN LISPRO 100 UNIT/ML SUBCUT SCH ×4 (10:11→21:30)
[2022-11-03] MEDS: AZITHROMYCIN INJ 500 MG in SODIUM CHLORIDE 0.9% 250 ML IV SCH (16:33)
[2022-11-03] MEDS: cefTRIAXone 1,000 MG in SODIUM CHLORIDE 0.9% 100 ML IV SCH (17:40)
[2022-11-03] MEDS: INSULIN GLARGINE 100 UNIT/ML SUBCUT SCH (21:35)
[2022-11-03] MEDS: ENOXAPARIN 40 MG/0.4 ML SYRINGE SUBCUT SCH (21:36)
[2022-11-04] MEDS: ALBUTEROL/IPRATROPIUM 3 ML NEB RESP TX SCH ×4 (00:30→19:57)
[2022-11-04] MEDS: methylPREDNISolone SOD SUC 40 MG/1 ML VIAL IV SCH (03:00)
[2022-11-04 05:58] LABS: Basophils % 0.2 % (0.0-0.8); Hematocrit 32.7 VOL% (42.0-52.0); Hemoglobin 9.9 GM/DL (14.0-18.0); Immature Granulocytes % 1.6 %; Immature Granulocytes Absolute 0.21 #; Lymphocytes # 0.4 10*3/uL (1.4-4.0); Lymphocytes % 3.1 % (21.2-54.2); Mean Corpuscular HGB Conc 30.3 GM/DL (32-36); Mean Corpuscular Volume 101.6 FL (87-102); Mean Platelet Volume 9.7 FL (9.6-12.0); Monocytes # 0.9 10*3/uL (0.11-0.8); Neutrophils % 88.1 % (38.7-73.9); Platelet Count 279 T/CUMM (130-400); Red Blood Count 3.22 MC/CUMM (3.8-5.5); Red Cell Distribution Width 13.7 % (9.3-17.3)
[2022-11-04 06:17] LABS: % Iron Saturation 31.5 % (18-50); Calcium 8.6 MG/DL (8.5-10.1); Ferritin 259.2 ng/mL (26-388); Osmolality,Calculated 294.7 MOS/KG (273-304); Potassium 4.6 MMOL/L (3.5-5.1)
[2022-11-04 06:20] LABS: Folate > 24.00 NG/ML (5.38-24.0); Vitamin B12 456 PG/ML (211-911)
[2022-11-04 06:36] LABS: Lymphocytes 5 % (20-55); Platelet Estimate Adequate; Total Cells Counted 100
[2022-11-04] MEDS: BUDESONIDE 0.5 MG/2 ML NEB RESP TX SCH ×2 (07:29→19:57)
[2022-11-04] MEDS: FEXOFENADINE 180 MG TABLET PO SCH (09:51)
[2022-11-04] MEDS: MULTIVITAMIN (CENTRUM) TABLET PO SCH (09:51)
[2022-11-04] MEDS: CLOPIDOGREL 75 MG TABLET PO SCH (09:51)
[2022-11-04] MEDS: MULTIVITAMIN (OCUVITE) TABLET PO SCH ×2 (09:51→21:18)
[2022-11-04] MEDS: TAMSULOSIN 0.4 MG CAPSULE PO SCH (09:51)
[2022-11-04] MEDS: ATORVASTATIN 20 MG TABLET PO SCH (09:51)
[2022-11-04] MEDS: PANTOPRAZOLE 40 MG TABLET PO SCH (09:51)
[2022-11-04] MEDS: PYRIDOSTIGMINE 60 MG TABLET PO SCH ×3 (09:51→21:18)
[2022-11-04] MEDS: INSULIN LISPRO 100 UNIT/ML SUBCUT SCH ×4 (09:52→21:20)
[2022-11-04] MEDS: MONTELUKAST 10 MG TABLET PO SCH (09:52)
[2022-11-04] MEDS: FOLIC ACID 1 MG TABLET PO SCH (09:52)
[2022-11-04] MEDS: lisinopriL 10 MG TABLET PO SCH (09:52)
[2022-11-04] MEDS: MYCOPHENOLATE MOFETIL 250 MG CAPSULE PO SCH ×2 (09:52→21:18)
[2022-11-04] MEDS: cefTRIAXone 1,000 MG in SODIUM CHLORIDE 0.9% 100 ML IV SCH (17:52)
[2022-11-04] MEDS: AZITHROMYCIN INJ 500 MG in SODIUM CHLORIDE 0.9% 250 ML IV SCH (17:53)
[2022-11-04] MEDS: ENOXAPARIN 40 MG/0.4 ML SYRINGE SUBCUT SCH (21:19)
[2022-11-04] MEDS: INSULIN GLARGINE 100 UNIT/ML SUBCUT SCH (21:20)
[2022-11-05] MEDS: ALBUTEROL/IPRATROPIUM 3 ML NEB RESP TX SCH ×4 (02:18→20:29)
[2022-11-05 06:09] LABS: Basophils % 0.1 % (0.0-0.8); Hematocrit 30.1 VOL% (42.0-52.0); Hemoglobin 9.3 GM/DL (14.0-18.0); Immature Granulocytes % 1.5 %; Immature Granulocytes Absolute 0.14 #; Lymphocytes # 0.7 10*3/uL (1.4-4.0); Lymphocytes % 7.4 % (21.2-54.2); Mean Corpuscular HGB Conc 30.9 GM/DL (32-36); Mean Corpuscular Volume 100.3 FL (87-102); Mean Platelet Volume 9.6 FL (9.6-12.0); Monocytes % 10.4 % (1.7-12.7); Neutrophils % 80.6 % (38.7-73.9); Platelet Count 267 T/CUMM (130-400); Red Cell Distribution Width 13.6 % (9.3-17.3); White Blood Count 9.2 T/CUMM (4-12)
[2022-11-05] MEDS: BUDESONIDE 0.5 MG/2 ML NEB RESP TX SCH ×2 (07:22→20:29)
[2022-11-05] MEDS: INSULIN LISPRO 100 UNIT/ML SUBCUT SCH ×4 (07:37→21:47)
[2022-11-05] MEDS: ATORVASTATIN 20 MG TABLET PO SCH (08:16)
[2022-11-05] MEDS: CLOPIDOGREL 75 MG TABLET PO SCH (08:16)
[2022-11-05] MEDS: PYRIDOSTIGMINE 60 MG TABLET PO SCH ×3 (08:17→21:44)
[2022-11-05] MEDS: MULTIVITAMIN (OCUVITE) TABLET PO SCH ×2 (08:17→21:44)
[2022-11-05] MEDS: TAMSULOSIN 0.4 MG CAPSULE PO SCH (08:17)
[2022-11-05] MEDS: MONTELUKAST 10 MG TABLET PO SCH (08:17)
[2022-11-05] MEDS: MYCOPHENOLATE MOFETIL 250 MG CAPSULE PO SCH ×2 (08:17→21:44)
[2022-11-05] MEDS: FEXOFENADINE 180 MG TABLET PO SCH (08:17)
[2022-11-05] MEDS: MULTIVITAMIN (CENTRUM) TABLET PO SCH (08:17)
[2022-11-05] MEDS: lisinopriL 10 MG TABLET PO SCH (08:17)
[2022-11-05] MEDS: PANTOPRAZOLE 40 MG TABLET PO SCH (08:17)
[2022-11-05] MEDS: FOLIC ACID 1 MG TABLET PO SCH (08:17)
[2022-11-05] MEDS ORDERED: methylPREDNISolone SOD SUC 40 MG/1 ML VIAL IV SCH (09:00)
[2022-11-05] MEDS: cefTRIAXone 1,000 MG in SODIUM CHLORIDE 0.9% 100 ML IV SCH (17:08)
[2022-11-05] MEDS: ENOXAPARIN 40 MG/0.4 ML SYRINGE SUBCUT SCH (21:44)
[2022-11-05] MEDS: INSULIN GLARGINE 100 UNIT/ML SUBCUT SCH (21:47)
[2022-11-06] MEDS: ALBUTEROL/IPRATROPIUM 3 ML NEB RESP TX SCH ×2 (00:05→07:18)
[2022-11-06 05:54] LABS: Basophils % 0.1 % (0.0-0.8); Eosinophils # 0.1 10*3/uL (0.0-0.87); Eosinophils % 1.1 % (0.00-10.9); Hematocrit 30.2 VOL% (42.0-52.0); Hemoglobin 9.2 GM/DL (14.0-18.0); Immature Granulocytes % 1.2 %; Lymphocytes # 1.5 10*3/uL (1.4-4.0); Lymphocytes % 18.4 % (21.2-54.2); Mean Corpuscular HGB Conc 30.5 GM/DL (32-36); Mean Platelet Volume 9.6 FL (9.6-12.0); Monocytes # 1.2 10*3/uL (0.11-0.8); Monocytes % 13.9 % (1.7-12.7); Neutrophils % 65.3 % (38.7-73.9); Platelet Count 260 T/CUMM (130-400); Red Blood Count 2.99 MC/CUMM (3.8-5.5); Red Cell Distribution Width 13.8 % (9.3-17.3); White Blood Count 8.3 T/CUMM (4-12)
[2022-11-06 06:18] LABS: Calcium 8.7 MG/DL (8.5-10.1); Osmolality,Calculated 287.5 MOS/KG (273-304); Potassium 4.6 MMOL/L (3.5-5.1)
[2022-11-06] MEDS: BUDESONIDE 0.5 MG/2 ML NEB RESP TX SCH (07:18)
[2022-11-06] MEDS: INSULIN LISPRO 100 UNIT/ML SUBCUT SCH ×2 (08:46→14:50)
[2022-11-06] MEDS: FEXOFENADINE 180 MG TABLET PO SCH (08:48)
[2022-11-06] MEDS: CLOPIDOGREL 75 MG TABLET PO SCH (08:48)
[2022-11-06] MEDS: ATORVASTATIN 20 MG TABLET PO SCH (08:49)
[2022-11-06] MEDS: MULTIVITAMIN (OCUVITE) TABLET PO SCH (08:49)
[2022-11-06] MEDS: PANTOPRAZOLE 40 MG TABLET PO SCH (08:49)
[2022-11-06] MEDS: MULTIVITAMIN (CENTRUM) TABLET PO SCH (08:49)
[2022-11-06] MEDS: lisinopriL 10 MG TABLET PO SCH (08:49)
[2022-11-06] MEDS: MONTELUKAST 10 MG TABLET PO SCH (08:49)
[2022-11-06] MEDS: FOLIC ACID 1 MG TABLET PO SCH (08:49)
[2022-11-06] MEDS: PYRIDOSTIGMINE 60 MG TABLET PO SCH (08:50)
[2022-11-06] MEDS: TAMSULOSIN 0.4 MG CAPSULE PO SCH (08:50)
[2022-11-06] MEDS: MYCOPHENOLATE MOFETIL 250 MG CAPSULE PO SCH (08:50)
[2022-11-06] MEDS ORDERED: predniSONE 20 MG TABLET PO SCH (09:00)
[2022-11-06 12:03] VITALS: BP 141/53
== END 2022-11-06 14:49 | disposition home health service (06) | DRG 193 ==
LOC: SUATTDRO → N.ED 12:02 → N.EDINP 14:47 → SUATTDRO 14:47 → N.2E 18:15
PROVIDERS: ADMIT Internal Medicine; ATTEND Internal Medicine